=== PATIENT | male | born 1995 | race Caucasian/White ===

== ENCOUNTER → 2022-05-16 | Outpatient (CLI) | payer BC ==
--- NOTE | 2022-05-16 08:37 | US ---
EXAMINATION TYPE: US abdomen complete DATE OF EXAM: 05/16/2022 COMPARISON: NONE CLINICAL HISTORY: R10.9 abd pain, K21.9 gerd. General abd pain with nausea, UGI to follow TECHNIQUE: Multiple sonographic images of the abdomen are obtained. FINDINGS: EXAM MEASUREMENTS: Liver Length: 16.1 cm Gallbladder Wall: 0.2 cm CBD: 0.4 cm Spleen: 12.4 cm Right Kidney: 11.1 x 5.2 x 5.3 cm Left Kidney: 10.2 x 4.5 x 6.2 cm Pancreas: wnl Liver: Mildly increased echotexture. Gallbladder: wnl Evidence for sonographic Bourne's sign: no CBD: wnl Spleen: wnl Right Kidney: wnl Left Kidney: wnl Upper IVC: wnl Abd Aorta: wnl IMPRESSION: Mild hepatic steatosis.
--- NOTE | 2022-05-16 11:48 | FL ---
EXAMINATION: Upper GI with esophagram DATE: 05/16/2022 CLINICAL INDICATION: 26-year-old male R10.9, abdominal pain, K21.9, GERD. COMPARISON: None Total Fluoroscopy Time: 3 minutes 19 seconds (radiation exposure was decreased by utilizing the lowes t fluoroscopy rate and also by utilizing last image hold save screens rather than radiographic exposu res) 63 images obtained. FINDINGS: The swallowing mechanism is normal and hypopharyngeal anatomy is preserved. The cervical and thoracic portions have a normal course and caliber and normal motility. The mucosa is normal and no persistent filling defect is encountered. There is a tiny sliding hiatal hernia demonstrated. Moderate gastroesophageal reflux is visualized when the patient is supine and holds in an RPO and rig ht lateral position. We were unable to elicit gastroesophageal reflux on Valsalva maneuver. The stomach and duodenum are free of any persistent filling defect and demonstrate a normal mucosal p attern. IMPRESSION: Tiny sliding hiatal hernia and moderate gastroesophageal reflux. This may account for the patient's s ymptoms. No other specific abnormality seen.
== END | disposition home or self-care (01) ==
LOC: RADUSWWP 07:03
PROVIDERS: ATTEND Family Medicine
DX: K21.9 Gastro-esophageal reflux disease without esophagitis (principal)
CPT/HCPCS: 74240; 76700

== ENCOUNTER → 2022-12-11 | Outpatient (CLI) | payer BC ==
--- NOTE | 2022-12-11 16:47 | MR ---
EXAMINATION TYPE: MR brain wo con DATE OF EXAM: 12/11/2022 3:12 PM COMPARISON: None. CLINICAL INDICATION:Male, 27 years old with history of R51.9 HEADACHE; Headaches on right side for 1 month. TECHNIQUE: Multi planar, multi sequence imaging was performed through the brain including: T1, T2, In version recovery, Diffusion weighted imaging, and gradient echo imaging. No gadolinium was given. FINDINGS: The porter-white junctions, ventricular system, and cisterns appear unremarkable.. Midline structures s how no abnormality. Diffusion-weighted imaging shows no evidence of restricted diffusion. The suscept ibility weighted images do not reveal any evidence for micro-hemorrhage. The bone marrow signal is within normal limits. Paranasal sinuses and mastoid air cells: No significant paranasal sinus disease. Visualized orbits: Orbital contents are intact. IMPRESSION: No evidence of intracranial mass or acute/subacute infarct.
== END | disposition home or self-care (01) ==
LOC: RADMRIMAIN 14:21
PROVIDERS: ATTEND Nurse Practitioner Gerontology
DX: R51.9 Headache, unspecified (principal)
CPT/HCPCS: 70551

== ENCOUNTER → 2023-09-11 | Outpatient (CLI) | payer BC ==
--- NOTE | 2023-09-12 08:48 | US ---
EXAMINATION TYPE: US thyroid st tissue head/neck DATE OF EXAM: 09/11/2023 COMPARISON: NONE CLINICAL INDICATION: Male, 28 years old with history of R221 LOCALIZED SWELLING MASS AND LUMP, NECK; Pt states DrNaty felt a lump on bilateral sides of neck. Physician thought it could be an enlarged thyro id GLAND SIZE: Right Lobe: 5.5 x 1.9 x 1.9cm Overall Parenchyma: homogeneous Left Lobe: 5.3 x 1.8 x 2.1 cm Overall Parenchyma: homogeneous Isthmus Thickness: 0.4 cm NODULES RIGHT: # of nodules measured on right: 1 1. 0.3 X 0.3 x 0.2 cm, mid mid, cystic or almost completely cystic, anechoic nodule, which is wider than tall, with smooth margins, without echogenic foci. LEFT: # of nodules measured on left: 0 ISTHMUS: # of nodules measured in the isthmus: 0 Borderline-enlarged lymph node right lateral and superior to the thyroid gland 2.0 x 1.6 x 0.6cm IMPRESSION: 1. Borderline to mild thyromegaly. 2. A solitary benign 3 mm cyst in the right lobe. 3. A borderline enlarged 1.6 cm short axis lymph node along the right side of the neck. Probably reac tive/post inflammatory. Consider follow-up ultrasound in 3 months to reassess.
== END | disposition home or self-care (01) ==
LOC: RADUSWWP 16:06
PROVIDERS: ATTEND Family Medicine
DX: E04.1 Nontoxic single thyroid nodule (principal); R22.1 Localized swelling, mass and lump, neck
CPT/HCPCS: 76536

== ENCOUNTER → 2024-02-27 | Outpatient (CLI) | payer BC ==
--- NOTE | 2024-02-27 09:02 | CT ---
EXAMINATION TYPE: CT soft tissue neck w con DATE OF EXAM: 02/27/2024 8:48 AM COMPARISON: HISTORY: patient intermittently feels swelling on Lt side of neck when he lays on his side. He says " like a second ortiz apple" CT DLP: 751.7 mGycm Automated exposure control for dose reduction was used. CONTRAST: CT scan of the neck is performed following with IV Contrast, patient injected with 100ml mL of Isovue 300. Axial images are obtained, coronal and sagittal reformatted images are reviewed. FINDINGS: Airway: No gross abnormality seen. Parotid/submandibular glands: No gross abnormality seen. Carotid/Vascular Structures: Enhance normally. Osseous Structures: Intact Other: No pathologic adenopathy within the soft tissue compartments of the neck. IMPRESSION: No suspicious soft tissue mass. If there is a clinically palpable abnormality consider u ltrasound.
== END | disposition home or self-care (01) ==
LOC: RADCTMAIN 08:08
PROVIDERS: ATTEND Family Medicine
DX: R59.0 Localized enlarged lymph nodes (principal)
CPT/HCPCS: 70491; Q9967